=== PATIENT | female | born 2000 | race African-American/Black ===

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

== ENCOUNTER 2021-10-07 08:03 | Emergency (ER) | payer SELFPAY | END 2021-10-07 09:45 | disposition home or self-care (01) | LOC: NAV ERS 08:03 | DX: O26.851 Spotting complicating pregnancy, first trimester (principal) | CPT/HCPCS: 36415; 84702; 86900; 86901; 99284 ==

== ENCOUNTER 2024-06-07 09:22 | Emergency (ER) | payer OTHER, SELFPAY | END 2024-06-07 10:09 | disposition home or self-care (01) | LOC: NAV ERS 09:22 | DX: J06.9 Acute upper respiratory infection, unspecified (principal); B34.9 Viral infection, unspecified | CPT/HCPCS: 87081; 87430; 99283 ==